=== PATIENT | female | born 1985 | race Caucasian/White ===

== ENCOUNTER 2021-03-01 09:47 | Outpatient (CLI) | payer BC, SELFPAY ==
--- NOTE | ~2021-03-01 | MM_ITS ---
EXAMINATION: MM scrn janneth implant BI w valente HISTORY: Screening mammogram TECHNIQUE: Craniocaudal and mediolateral oblique 3-D tomosynthesis images with implant displacement a nd synthetic 2-D images were generated. Craniocaudal and mediolateral oblique views of the breasts wi thout implant displacement were obtained using full field digital mammography. CAD analysis was submi tted and interpreted. COMPARISON: No prior mammogram is available for comparison at this institution. BREAST PARENCHYMAL COMPOSITION: There are scattered areas of fibroglandular density. FINDINGS: There are bilateral breast asymmetries overlying the implants on the MLO implant displaced views as well as centrally in the left breast on CC view and medially in the right breast on CC view. IMPRESSION: 1. Bilateral breast asymmetries. 2. Additional mammographic views and possible breast ultrasound are recommended. BI-RADS Category 0: Incomplete: Needs additional imaging evaluation. Reviewed, dictated and finalized at location A. IMPRESSION: 1. Bilateral breast asymmetries. 2. Additional mammographic views and possible breast ultrasound are recommended . BI-RADS Category 0: Incomplete: Needs additional imaging evaluation.
== END 2021-03-01 09:48 | disposition home or self-care (01) ==
PROVIDERS: PCP Family Medicine; Visit Provider Surgery Plastic and Reconstructive Surgery
DX: Z12.31 Encounter for screening mammogram for malignant neoplasm of breast (principal); R92.8 Other abnormal and inconclusive findings on diagnostic imaging of breast
CPT/HCPCS: 77063; 77067

== ENCOUNTER 2021-03-07 13:13 | Outpatient (CLI) | payer BC, SELFPAY ==
--- NOTE | ~2021-03-07 | MMUS_ITS ---
EXAMINATION: MM diagnostic mammo BI, US breast BI limited HISTORY: Bilateral asymmetries on screening mammogram TECHNIQUE: Additional 3-D tomosynthesis images of the breasts were performed and synthetic 2-D images were generated. CAD analysis was submitted and interpreted. High resolution limited bilateral breast ultrasound was performed. COMPARISON: 03/01/2021 FINDINGS: MAMMOGRAPHIC FINDINGS: Right breast: An asymmetry persists in the middle third of the inner breast adjacent to the implant 7 cm from the nipple on craniocaudal view. No correlate is identified on the mediolateral oblique or m ediolateral views. Left breast: No persistent asymmetry is identified with spot compression of the left breast on the cr aniocaudal view. ULTRASOUND: Right breast: No sonographic correlate is identified for the inner breast asymmetry on the mammogram. A small amount of fluid is seen surrounding the breast implant. Left breast: There is a 3 mm circumscribed hypoechoic mass with no posterior features or internal vas cularity at the 5:00 location near the nipple likely reflecting a complicated cyst. IMPRESSION: 1. Probably benign right breast asymmetry without suspicious sonographic correlate. Small amount of f luid surrounding the right breast implant of unclear significance. 2. Recommend 6 month follow-up left diagnostic mammogram and possible ultrasound. BI-RADS category 3, probably benign findings. Reviewed, dictated and finalized at location A. IMPRESSION: 1. Probably benign right breast asymmetry without suspicious sonographic correl ate. Small amount of fluid surrounding the right breast implant of unclear sign ificance. 2. Recommend 6 month follow-up left diagnostic mammogram and possible ultrasoun d. BI-RADS category 3, probably benign findings.
== END 2021-03-07 13:14 | disposition home or self-care (01) ==
LOC: ANHIMG 13:14
PROVIDERS: PCP Family Medicine; Visit Provider Surgery Plastic and Reconstructive Surgery
DX: R92.8 Other abnormal and inconclusive findings on diagnostic imaging of breast (principal)
CPT/HCPCS: 76642; 77066

== ENCOUNTER 2021-09-17 11:40 | Outpatient (CLI) | payer BC, SELFPAY ==
--- NOTE | ~2021-09-17 | MMUS_ITS ---
EXAMINATION: MM diag janneth implant LT w valente, US breast LT complete HISTORY: Follow-up left breast mass TECHNIQUE: Additional 3-D tomosynthesis images of the left breast were performed and synthetic 2-D im ages were generated. CAD analysis was submitted and interpreted. High resolution complete left breast ultrasound was performed. COMPARISON: 03/01/2021 BREAST PARENCHYMAL COMPOSITION: Breast composed of scattered areas of fibroglandular density. FINDINGS: MAMMOGRAPHIC FINDINGS: There are no suspicious masses, calcifications or architectural distortion in the left breast to sugg est malignancy. ULTRASOUND: Complete bilateral US of all 4 quadrants of the breasts and retroareolar region was reviewed. Normal heterogeneous echotexture without focal solid or cystic mass. IMPRESSION: 1. No evidence for malignancy in the left breast. 2. Routine yearly screening mammogram and regular clinical breast examination are recommended. BI-RADS Category 1: Negative Reviewed, dictated and finalized at location A. IMPRESSION: 1. No evidence for malignancy in the left breast. 2. Routine yearly screening mammogram and regular clinical breast examination a re recommended. BI-RADS Category 1: Negative
== END 2021-09-17 11:41 | disposition home or self-care (01) ==
LOC: ANHIMG 11:42
PROVIDERS: PCP Family Medicine; Visit Provider Surgery Plastic and Reconstructive Surgery
DX: R92.8 Other abnormal and inconclusive findings on diagnostic imaging of breast (principal)
CPT/HCPCS: 76641; 77061; 77065; G0279

== ENCOUNTER 2022-01-06 13:00 | Outpatient (CLI) | payer OTHER, SELFPAY ==
--- NOTE | 2022-01-06 13:00 | ECG_ITS ---
Measurements Intervals Shunk Rate: 76 P: 45 IA: 112 QRS: 62 QRSD: 90 T: 41 QT: 388 QTc: 436 Interpretive Statements SINUS RHYTHM WITH SHORT IA INTERVAL BASELINE ARTIFACT- I, II, AVR, AVL, AVF, V4-V6 BORDERLINE ECG Electronically Signed On 01-06-2022 13:16:35 SYSTEM SPECIALIST by Jamel Goldstein D.O.
[2022-01-06 13:32] LABS: Hematocrit 41.9 % (37.0-47.0); Hemoglobin 14.1 g/dL (12.0-15.0)
== END 2022-01-06 13:01 | disposition home or self-care (01) ==
LOC: ANHSURGERY 13:04
PROVIDERS: Anesthesiology; PCP Family Medicine; Visit Provider Surgery Plastic and Reconstructive Surgery
DX: Z41.1 Encounter for cosmetic surgery (principal)
CPT/HCPCS: 36415; 85014; 85018; 93005

== ENCOUNTER 2022-01-10 01:13 | Day surgery (SDC) | payer OTHER, SELFPAY ==
[2022-01-02 15:01] VITALS: BMI 26.6
--- NOTE | 2022-01-02 15:11 | PC.NURSE ---
Report to the Outpatient Waiting Room, entrance under the green pavilion located off [facility], at time 8:30 on date 01/10/22. OR Time: 10:30. - You and your visitor will be asked a series of questions to screen for COVID 19 for your protection. - A mask is required within the hospital. One visitor will be allowed to accompany the patient into the hospital. Patients visitor will be instructed to remain with patient at all times or leave the building. We will allow the visitor to come back to the postoperative area when patient is ready. Preoperative COVID Testing Requirements: No COVID Test needed if: (proof is required; if not received patient will have Rapid Test prior to entry) - Patient has received COVID Vaccine at least 14 days prior to procedure date or - Patient has positive COVID test result within last 90 days of surgery date. COVID Test needed if above criteria is not met Patients may have clear liquids (water, carbonated beverages, clear teas, apple juice) until 3 hours prior to surgery (7:30) with a maximum of 20 ounces. - No food from midnight until time of surgery Take the following medications with a SIP of water the morning of surgery: NONE Medications to discontinue per physician: VITAMINS/SUPPLEMENTS Date to take last dose: 01/06/22 Please no make-up, nail romanian, hairspray, perfume, deodorant, or body powder the day of surgery. No jewelry (including any body piercings) or valuables the day of surgery, leave them at home. Please take a shower or bath the night before, or the morning of, surgery with an antibacterial soap. Wear comfortable, loose fitting clothing. - Jewelry must be removed prior to entering the operating room. Rings and piercings that are not removed may be cut off. - The hospital will not accept responsibility for valuables. - Please leave all valuables, including medications, at home the day of surgery. If you are going home after surgery, a licensed cdl a driver must drive you home. - NO public transportation without another adult. - We recommend that an adult stay with you for 24 hours following discharge. - We also recommend that you do not drive, make important decision, drink alcoholic beverages, or take any drugs that were not prescribed by your health care provider for at least 24 hours after your discharge time. Follow any additional instructions given to you from your surgeon. Telephone instructions given to ISABELLA ART and asked if any additional questions and then verbalized understanding. Patient advised to call surgeon office or pre surgery nurse liaison [phone] if any additional questions.
--- NOTE | 2022-01-09 12:51 | WPDANESEPPF ---
Anes - Initial Pre Proc Eval Procedure: Operation Date: 01/10/22 10:30 Proposed Procedures p Bilateral Breast Implant Exchange with Capsulectomy - Poncho Concepcion MD s Bilateral Breast Mastopexy - Poncho Concepcion MD Date/Time: 01/09/22 12:51 Surgeon: Poncho Concepcion MD Pre Op Diagnosis: hx of breast implant exchange Patient Data Age: 36 Gender: F Height: 1.65 m Weight: 72.57 kg Allergies Allergy/AdvReac Type Severity Reaction Status Date / Time No Known Allergies Allergy Unverified 01/10/22 09:07 Home Medications Medication Instructions Recorded Confirmed Type carisoprodol 350 mg tablet 350 mg PO TID PRN #21 tablet 12/03/21 01/10/22 Rx docusate sodium 100 mg capsule 100 mg PO DAILY #14 cap 12/03/21 01/10/22 Rx oxycodone-acetaminophen 5 mg-325 1 tablet PO Q6H PRN #30 tablet 12/03/21 01/10/22 Rx mg tablet melatonin 5 mg PO HS PRN 01/02/22 01/10/22 History multivitamin 1 tablet PO DAILY 01/02/22 01/10/22 History Patient hx anesthesia problems: none Family hx anesthesia problems: none Results Review: All pre-operative results and documents have been reviewed as part of the pre-operative evaluation. [facility] Past Medical History Medical History (Updated 01/09/22 @ 12:51 by Praveen Sal MD) Anxiety Family History Family History Father Hypertension Family history of coronary artery disease Mother Hypertension Family history of type 2 diabetes mellitus Social History Social History Smoking status: Former smoker Tobacco type: cigarettes Smoking end date: 11/16/15 Additional smoking assessment comments: SOCIAL Alcohol intake: current Drinks per week: 3 Substance use: never Substance use type: does not use Living arrangements: with family Spiritual care concerns: No Anes - Eval Final PreProcedure Day of Procedure 01/09/22 12:51 Patient weight: overweight Heart: regular rate and rhythm Lungs: clear to auscultation Airway: Mallampati scale class II Neurological: alert and oriented Last oral intake: >/= 8 hours ASA classification: II Emergent: no Anesthetic plan: proceed Anesthesia type and monitoring: general LMA and standard monitoring Results Review: All pre-operative results and documents have been reviewed as part of the pre-operative evaluation. Informed Consent: The patient's anesthetic plan and its attendant risks and benefits were discussed with the patient/family/POA. Questions were solicited and answers provided to the satisfaction of the patient/family/POA.
[2022-01-10] VITALS (9 sets, daily range): BP systolic 120–154; BP diastolic 61–74; PULSE 85–114; RESP 11–18; TEMP 36.3–36.8; O2SAT 99–100
[2022-01-10 08:54] LABS: Urine Cotinine NEGATIVE
[2022-01-10] MEDS: LACTATED RINGERS 1,000 ML 30 ML IV CONT ×3 (09:00→13:30)
--- NOTE | 2022-01-10 10:03 | WPDHPUPDATE1 ---
History and Physical Update Update Date/Time: 01/10/22 10:03 History and Physical has been reviewed, including an updated exam of the patient. There are NO changes in the patient's condition. Risks, benefits, and alternatives have been discussed and questions answered. Patient agrees to proceed with procedure.
--- NOTE | 2022-01-10 10:31 | P.OP_ITS ---
Procedure Note - Detailed Date of Procedure 01/10/22 Pre-op Diagnosis hx of breast implant exchange Post-op Diagnosis same Procedure Performed 1. Bilateral breast implant exchange (with capsulectomy and change to subuscular plane 2. Bilateral mastopexy Surgeon Poncho Concepcion MD Anesthesia general Findings Inverted T Superior pedicle Implants: Bilateral Hetal Salguero SoftTouch 320cc Right - REF# SSL-320 SN [id number] Left - REF# SSL-320 SN [id number] Description of Procedure Preoperatively the risks, benefits, alternatives were discussed in extensive detail. I want her to be very realistic about the risks involved as well as expectations. Made sure answered all of her questions to her satisfaction. Consent was obtained. Patient was taken to the operating room placed supine on the operating room table. Anesthesia provided by anesthesiology and prepped and draped in a standard sterile fashion. Surgical time-out was taken. 1% lidocaine and 0.25% Marcaine with epinephrine was used to provide a field block. She was prepped and draped in a standard sterile fashion. During the implant portion Tegaderm nipple Oliva were placed. Fifteen blade used to make an incision in the previous scar site. Dissection was continued down to the implant capsule was identified and removed the majority of the capsule. The capsule and the implant removed. I then incised the pectoralis major along its inferior border and created a subpectoral pocket in a dual plane fashion in the appropriate dimensions. Copiously irrigated with saline solution using 3 L on TUR tubing. Verified a strict hemostasis. I then copiously irrigated with triple antibiotic Betadine solution. Wash my gloves. Using a Egan funnel the implant was introduced into the pocket. This space was closed using 2-0 Vicryl. I then tailor tacked the breast into place and placed her in a sitting position. I marked out the nipple-areolar complex at 38 mm in a sitting position. This is based on preoperative planning intraoperative observations and measurements which were in full agreement. She was placed supine. Ten blade used to incise around the areola and I de- epithelialized the superior pedicle. I resected the inferior medial portion leaving the implant well protected. I elevated medial and lateral flaps. These were tacked into place and I closed along the IMF using 2-0 Stratafix. 2-0 PDS along the vertical. I used 3-0 Stratafix around the areola. 3-0 Monocryl in the vertical. 3-0 Stratafix along the IMF and everything was closed with a running subcuticular 4-0 Monocryl and tissue glue. Patient was awoke and taken to the PACU without difficulty. All instrument sponge counts were correct at the end of the case. Estimated Blood Loss 30 Drains No Packing No Pathology yes (Breast implant capsule) Complications No immediate complications Condition stable Disposition PACU
--- NOTE | 2022-01-10 10:37 | PM.HPGS ---
History of Present Illness History of Present Illness Consent: Risks, benefits, and alternatives have been discussed and questions answered. Patient agrees to proceed with procedure. Chief complaint: hx of breast implant exchange Narrative: Charlette Sherman is a 36 year old female who had previous saline implants. These have been rupture. She would like proceed with bilateral breast implant exchange, change plane to submuscular, bilateral mastopexy. Review of Systems Review of Systems: All systems reviewed & are unremarkable except as noted in HPI and below PMFSH Past Medical History Medical History (Updated 01/09/22 @ 12:51 by Praveen Sal MD) Anxiety Family History Family History Father Hypertension Family history of coronary artery disease Mother Hypertension Family history of type 2 diabetes mellitus Social History Social History Smoking status: Former smoker Tobacco type: cigarettes Smoking end date: 11/16/15 Additional smoking assessment comments: SOCIAL Alcohol intake: current Drinks per week: 3 Substance use: never Substance use type: does not use Living arrangements: with family Spiritual care concerns: No Meds Home Medications and Allergies Home Medications Medication Instructions Recorded Confirmed Type carisoprodol 350 mg tablet 350 mg PO TID PRN #21 tablet 12/03/21 01/10/22 Rx docusate sodium 100 mg capsule 100 mg PO DAILY #14 cap 12/03/21 01/10/22 Rx oxycodone-acetaminophen 5 mg-325 1 tablet PO Q6H PRN #30 tablet 12/03/21 01/10/22 Rx mg tablet melatonin 5 mg PO HS PRN 01/02/22 01/10/22 History multivitamin 1 tablet PO DAILY 01/02/22 01/10/22 History Allergies Allergy/AdvReac Type Severity Reaction Status Date / Time No Known Allergies Allergy Unverified 01/10/22 09:07 Vital Signs Vital Signs - 24 hr 01/10/22 08:33 Temperature 36.8 C Pulse Rate 114 H Respiratory Rate 18 Blood Pressure 120/67 Pulse Oximetry 99 Exam Narrative: Bilateral ruptured breast implants. No masses palpable. Const: General: comfortable, no acute distress, alert and awake; No acute distress Orientation/consciousness: oriented to person HENMT: Head: normal to inspection Ears: external ears normal General nose exam: Normal external nose present Face and sinus: normal facial exam Eyes: General: appearance normal, both eyes and all related structures Periorbital: periorbital findings normal Eyelids: eyelids normal Conjunctivae: conjunctivae normal Neck: Neck: normal visual inspection Chest: Chest palpation & inspection: normal inspection of the chest Resp: Effort & Inspection: normal respiratory effort and able to speak in complete sentences GI: Inspection: normal to inspection Neuro: General: oriented to person Psych: Appearance: grossly normal Mental Status: mental status grossly normal Assessment and Plan Assessment and plan (1) History of breast augmentation: Code(s): Z98.82 - Breast implant status Status: Acute Assessment and Plan: She would like proceed with bilateral breast implant exchange changing to a submuscular plane with mastopexy. Risks, benefits, alternatives were discussed in extensive detail. I want to be very realistic about the risks involved as well as expectations. Reviewed consent in detail. Discussed aftercare and what to monitor for. Made sure I answered all questions answered to satisfaction and consent obtained.
[2022-01-10] MEDS: ceFAZolin 2 GM/D5W 50 ML 2 GM/50 ML BAG IVPB (10:53)
[2022-01-10] MEDS: TRANEXAMIC ACID 1,000MG/ISO100 1,000 MG/100 ML BAG 200 MG IVPB (11:07)
--- NOTE | 2022-01-10 11:47 | SUR.OPER ---
bilateral breast implants [facility] 320CC, YOVANIESSENTIA HEALTHEfrain INSPIRA SOFT TOUCH BREAST IMPLANT RIGHT REF SSL-320, SN [id number] EXP 2025-09-14. LEFT REF SSL-320, SN [id number], EXP 2025-09-14. IMPLANTS SOAKED IN PHARMACY ANTIBIOTIC SOLUTION WHEN PLACED ON STERILE FIELD.
[2022-01-10] MEDS: fentaNYL CITRATE INJ (*CRX) 100 MCG/2 ML VIAL 25 MCG IV PUSH ×2 (13:36→13:52)
[2022-01-10] MEDS: ONDANSETRON INJ 4 MG/2 ML VIAL IV PUSH ×2 (13:44→13:51)
--- NOTE | 2022-01-10 13:47 | SUR.OPER ---
right wrist assessed post op and bandage on/incision remains in close approximation and sutures intact/pillow under right arm hand and over chest. patient able to wiggle fingers and + sensation in all fingers.
[2022-01-10] MEDS: SCOPOLAMINE 1.5 MG PATCH TRANSDERM (14:04)
[2022-01-10] MEDS: diphenhydrAMINE HCl INJ 50 MG/ML VIAL 12.5 MG IV PUSH (14:04)
[2022-01-10] MEDS: oxyCODONE HCL (*CRX) 5 MG TAB IR PO (14:53)
== END 2022-01-10 15:42 | disposition home or self-care (01) ==
PROVIDERS: PCP Family Medicine; Visit Provider Surgery Plastic and Reconstructive Surgery
PROC: (CPT 19342; principal; 2022-01-10 10:30)
PROC: (CPT 19316; 2022-01-10 10:30)
DX: Z41.1 Encounter for cosmetic surgery (principal); Z87.891 Personal history of nicotine dependence; Z79.899 Other long term (current) drug therapy
CPT/HCPCS: 19371; 19325; 19316; 80307; 88304; A9270; J0171; J0690; J1100; J1200; J1580; J2250; J2405; J2704; J3010; J7120